=== PATIENT | female | born 1995 | race Caucasian/White ===

== ENCOUNTER 2018-10-11 03:11 | Emergency (ER) | payer BC ==
[~2018-10-11] VITALS: Wt 61.9 kg
[2018-10-11 03:15] VITALS: RESP 18
--- NOTE | 2018-10-11 04:02 | ERD ---
ER Documentation Chief Complaint Chief Complaint AP X'S 1 HOUR HPI This is a 23-year-old female who presents to the emergency department with complaints of sharp right upper abdominal pain that woke her up today. LMP: September 24, 2017. General 03/2018. . Denies headache, head injury, loss of consciousness, dizziness, neck pain, neck stiffness, throat pain, difficulty swallowing, difficulty breathing lying flat, shoulder pain, chest pain, back pain, nausea, vomiting, constipation, diarrhea, urinary symptoms, or possibility being , loss of bowel and bladder control, trauma, injury, falls, difficulty walking due to pain, numbness or tingling sensation, calf pain, recent travel, recent major surgery in the last 3 weeks, calf pain, recent long travel, recent exposure to any illness, recent antibiotic use in the last 3 months, fever, chills, seizures. Past medical history: Surgical history: Social: Denies smoking, use of alcoholic beverages, use of illegal drugs. ROS All systems reviewed and are negative except as per history of present illness. Medications Home Meds Active Scripts Famotidine* (Pepcid*) 20 Mg Tablet, 20 MG PO DAILY for 30 Days, TAB Prov:CLAUDIOILABANSANDROLATESHA F 10/11/18 Ondansetron Hcl* (Zofran*) 4 Mg Tablet, 4 MG PO Q8H PRN for NAUSEA AND/OR VOMITING, #30 TAB Prov:CLAUDIOILABANEFREN F 10/11/18 Acetaminophen* (Tylophen*) 500 Mg Capsule, 1 CAP PO Q6H PRN for PAIN AND OR ELEVATED TEMP, #20 CAP Prov:CLAUDIOILABANEFREN F 10/11/18 Allergies Allergies: Coded Allergies: No Known Drug Allergies (Verified Allergy, 06/07/11) PMhx/Soc History of Surgery: No Hx Miscellaneous Medical Probl: No (NO OTHER MEDICAL) Hx Alcohol Use: No Hx Substance Use: No Hx Tobacco Use: No Smoking Status: Never smoker Physical Exam Vitals Physical Exam Const: No acute distress Head: Atraumatic Eyes: Normal Conjunctiva ENT: Normal External Ears, Nose and Mouth. Neck: Full range of motion. No meningismus. Resp: Clear to auscultation bilaterally Cardio: Regular rate and rhythm, no murmurs Abd: Soft, non tender, non distended. Normal bowel sounds. Has right upper abdominal tenderness. Negative Rovsign sign. Negative Psoas sign. Negative Cosby sign([id number]). No CVA tenderness. Able to jump 3 times without developing lower abdominal pain. Skin: No petechiae or rashes Back: No midline or flank tenderness. Ext: No cyanosis, or edema Neur: Awake and alert. No neurological deficits. Psych: Normal Mood and Affect Result Diagram: 10/11/183 10/11/18 0403 Results 24 hrs Laboratory Tests Test 10/11/18 03:58 10/11/18 04:03 10/11/18 04:11 Urine Color YELLOW Urine Clarity CLEAR Urine pH 5.0 Urine Specific [place] 1.021 Urine Ketones NEGATIVE mg/dL Urine Nitrite NEGATIVE mg/dL Urine Bilirubin NEGATIVE mg/dL Urine Urobilinogen 1+ mg/dL Urine Leukocyte Esterase NEGATIVE Jossue/ul Urine Hemoglobin NEGATIVE mg/dL Urine Glucose NEGATIVE mg/dL Urine Total Protein NEGATIVE mg/dl White Blood Count 8.2 10^3/ul Red Blood Count 3.97 10^6/ul Hemoglobin 12.5 g/dl Hematocrit 37.2 % Mean Corpuscular Volume 93.7 fl Mean Corpuscular Hemoglobin 31.5 pg Mean Corpuscular 33.6 g/dl Hemoglobin Concent Red Cell Distribution Width 12.2 % Platelet Count 274 10^3/UL Mean Platelet Volume 11.5 fl Immature Granulocytes % 0.100 % Neutrophils % 44.1 % Lymphocytes % 44.2 % Monocytes % 8.9 % Eosinophils % 2.1 % Basophils % 0.6 % Nucleated Red Blood Cells % 0.0 /100WBC Immature Granulocytes # 0.010 10^3/ul Neutrophils # 3.6 10^3/ul Lymphocytes # 3.6 10^3/ul Monocytes # 0.7 10^3/ul Eosinophils # 0.2 10^3/ul Basophils # 0.1 10^3/ul Nucleated Red Blood Cells # 0.0 10^3/ul Sodium Level 140 mmol/L Potassium Level 4.1 mmol/L Chloride Level 101 mmol/L Carbon Dioxide Level 30 mmol/L Anion Gap 9 Blood Urea Nitrogen 11 mg/dl Creatinine 0.63 mg/dl Est Glomerular Filtrat > 60 mL/min Rate mL/min Glucose Level 95 mg/dl Calcium Level 9.7 mg/dl Total Bilirubin 0.2 mg/dl Direct Bilirubin 0.00 mg/dl Indirect Bilirubin 0.2 mg/dl Aspartate Amino 25 IU/L Transf (AST/SGOT) Alanine 15 IU/L Aminotransferase (ALT/SGPT) Alkaline Phosphatase 72 IU/L Total Protein 8.3 g/dl Albumin 4.4 g/dl Globulin 3.90 g/dl Albumin/Globulin Ratio 1.12 Amylase Level 45 U/L Lipase 167 U/L POC Beta HCG, Qualitative NEGATIVE Procedures/MDM Diagnostic tests: POC urine : Negative. Urinalysis: Reviewed. Culture urine: Sent. Blood works: Reviewed. Ultrasound of the gallbladder: 1. Unremarkable abdominal ultrasound. 2. Negative for gallstones. Treatment: Refuses pain medication. Re-evaluation: No episode of emesis here in the emergency department. Negative Wesly sign([id number]). Negative Rovsing sign. Negative psoas sign. Able to jump 3 times without developing lower abdominal pain. Differential diagnosis I have low suspicion for pancreatitis, cholecystitis, bowel obstruction, kidney stones, appendicitis, diverticulitis, sepsis, severe dehydration. Final diagnosis: Abdominal pain. Prescription: Pepcid. Zofran. Tylenol. Follow-up with PCP in the next 24-48 hours. Come back here in the emergency department for any new symptoms or any worsening symptoms. All questions and concerns were answered. Patient and family members verbalized understanding and agreed with plan of care. Hemodynamically stable on discharge. Departure Diagnosis: Primary Impression: Epigastric pain Condition: Stable Additional Instructions: Follow-up with PCP in the next 24-48 hours. Come back here in the emergency department for any new symptoms or any worsening symptoms. EFREN SCHAEFER Oct 11, 2018 04:02
[2018-10-11] MEDS ORDERED: ACET500C5 PO (05:45)
[2018-10-11] MEDS ORDERED: ONDA4TAB8 PO (05:46)
[2018-10-11] MEDS ORDERED: FAMO-96 PO (05:46)
[2018-10-11 05:55] VITALS: BP 114/68; PULSE 64
== END 2018-10-11 05:55 | disposition home or self-care (01) ==
LOC: FTE 03:11
DX: R10.10 Upper abdominal pain, unspecified (principal)
CPT/HCPCS: 76705; 80053; 81003; 81025; 82150; 83690; 85025; 87086